=== PATIENT | male | born 1960 | race African-American/Black ===

== ENCOUNTER 2016-12-06 11:46 | Emergency (ER) | payer OTHER ==
[2016-12-06 11:59] VITALS: BP 138/75; PULSE 92; TEMP 97.9; BMI 25.4
[2016-12-06] MEDS ORDERED: ALBUTEROL SO4 2.5/IPRATROPIUM 0.5 INH SOL 3 ML VIAL.NEB. NEB ONE ×2 (12:53→12:56)
--- NOTE | 2016-12-06 13:16 | PDOC ---
History of Present Illness - General Chief Complaint: Asthma Stated Complaint: SOB, ASTHMA Time Seen by Provider: 12/06/16 12:49 - History of Present Illness Initial Comments: 12/06/16 13:10 CHIEF COMPLAINT: shortness of breath HISTORY OF PRESENT ILLNESS: 56 yo M with hx of asthma, LVH, BPH presents to fast track with SOB x 3 days. Patient states he has had a productive cough with "green phlegm" for the last 3 days. He is not sure if he had a fever but did have chills and "headache from all the coughing." He reports using is inhaler "up to 6 times a day the last 3 days" with minimal relief. He denies any chest pain, nausea, vomiting, diarrhea. No recent travel or sick contacts. PAST MEDICAL HISTORY: Denies past medical history FAMILY HISTORY: Denies SOCIAL HISTORY: Former smoker "quit decades ago." Denies alcohol, illicit drug use. SURGICAL HISTORY: rotator cuff (2009), back (2005), knee ("decades ago") ALLERGIES: No known drug allergies REVIEW OF SYSTEMS General/Constitutional: Denies fever or chills. Denies weakness, weight change. HEENT: Denies change in vision. Denies ear pain or discharge. Denies sore throat. Cardiovascular: Denies chest pain or shortness of breath. Respiratory: Persistent productive cough. Denies wheezing, or hemoptysis. Gastrointestinal: Denies nausea, vomiting, diarrhea or constipation. Denies rectal bleeding. Genitourinary: Denies dysuria, frequency, or change in urination. Musculoskeletal: Denies joint or muscle swelling or pain. Denies neck or back pain. Skin and breasts: Denies rash or easy bruising. Neurologic: Headache. Denies vertigo, loss of consciousness, or loss of sensation. PHYSICAL EXAM General Appearance: Well-appearing, appropriately dressed. No apparent distress. HEENT: Rhinorrhea. EOMI, PERRLA, normal ENT inspection, normal voice, TMs normal, pharynx normal. No conjunctival pallor. No photophobia, scleral icterus. Respiratory/Chest: Lungs CTAB. No shortness of breath, chest tenderness, respiratory distress, accessory muscle use. No crackles, rales, rhonchi, stridor , wheezing, dullness Cardiovascular: RRR. S1, S2. Gastrointestinal/Abdominal: Normal bowel sounds. Abdomen soft, non-distended. Musculoskeletal/Extremities: Normal inspection. FROM of all extremities, normal capillary refill. Pelvis Stable. No CVA tenderness. No tenderness to extremities, pedal edema, swelling, erythema or deformity. Integumentary: Appropriate color, dry, warm. 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 Fully oriented, alert. Appropriate mood/affect. No appreciable EOM palsy, facial droop or sensory deficit. Past History - Past Medical History Allergies/Adverse Reactions: Allergies Allergy/AdvReac Type Severity Reaction Status Date / Time No Known Allergies Allergy Verified 12/06/16 11:54 Home Medications: Ambulatory Orders Albuterol Sulfate Inhaler - [Ventolin HFA Inhaler -] 1 - 2 inh PO QID PRN #1 inhaler 12/06/16 Clarithromycin 500 mg PO BID #20 tablet 12/06/16 Anemia: No Asthma: Yes Cancer: No Cardiac Disorders: No CVA: No COPD: No CHF: No Dementia: No Diabetes: No GI Disorders: No Disorders: No HTN: Yes Hypercholesterolemia: No Liver Disease: No Suicide Attempt (Hx): No Seizures: No Thyroid Disease: No - Surgical History Abdominal Surgery: No Appendectomy: No Cardiac Surgery: No Cholecystectomy: No Lung Surgery: No Neurologic Surgery: No Orthopedic Surgery: Yes (KNEE ARTHOSCOPY, FACIAL SURGERY, BACK SURGERY ROTATOR CUFF REPAIN) - Immunization History Td Vaccination: Yes - Psycho/Social/Smoking Cessation Hx Anxiety: No Suicidal Ideation: No Smoking Status: Yes Smoking History: Former smoker Have you smoked in the past 12 months: No Number of Cigarettes Smoked Daily: 0 If you are a former smoker, when did you quit?: 10 YEARS Information on smoking cessation initiated: No Hx Alcohol Use: No Drug/Substance Use Hx: No Substance Use Type: None Hx Substance Use Treatment: No Respiratory Specific PMHX - Complaint Specific PMHX Angina: No Bronchitis: Yes Pneumonia: Yes Pulmonary Embolus: No TB (Tuberculosis): No *Physical Exam - Vital Signs Last Vital Signs Temp Pulse Resp BP Pulse Ox 97.9 F 92 H 19 138/75 99 12/06/16 11:54 12/06/16 11:54 12/06/16 11:54 12/06/16 11:54 12/06/16 11:54 ED Treatment Course - Medications Given in the ED: ED Medications Discontinued Medications Generic Name Dose Route Start Last Admin Trade Name Bradq PRN Reason Stop Dose Admin Albuterol/Ipratropium 1 amp 12/06/16 12:53 12/06/16 13:04 Duoneb - NEB 12/06/16 12:54 1 amp ONCE ONE Administration Medical Decision Making - Medical Decision Making 12/06/16 13:14 56 yo male with history of asthma, LVH, BPH, presents to ED with shortness of breath 3 days with productive cough. -Duoneb -Rapid flu swab Patient states he does not want azithromycin for treatment. -Clarithryomycin 500 mg bid x 10 days. -Albuterol nebulizer Advised patient to take medications as prescribed and follow up with primary care doctor. Advised patient of signs and symptoms for return to ED. Patient verbalized understanding and agrees to plan. *DC/Admit/Observation/Transfer Diagnosis at time of Disposition: Bronchitis - Discharge Dispostion Disposition: HOME Condition at time of disposition: Stable Admit: No - Prescriptions Prescriptions: Clarithromycin 500 mg PO BID #20 tablet Albuterol Sulfate Inhaler - [Ventolin HFA Inhaler -] 1 - 2 inh PO QID PRN #1 inhaler PRN Reason: Short Of Breath/Wheezing - Referrals Referrals: Tamara Monet MD [Primary Care Provider] - - Patient Instructions Printed Discharge Instructions: DI for Acute Bronchitis Additional Instructions: Please take medications as prescribed and follow-up with your primary care doctor for further evaluation and management of your asthma. If you experience chest pain, shortness of breath unrelieved by your inhaler, persistent fever, nausea, vomiting, diarrhea, or any new or worsening symptoms, please return to the ER.
[2016-12-06] MEDS ORDERED: DEXAMETHASONE LIQUID 0.5 MG/5 ML 240 ML BULK BOTTLE PO ONE (13:36)
[2016-12-06] MEDS ORDERED: DEXAMETHASONE SOD PHOSPHATE 4 MG/1 ML VIAL ONE (13:39)
== END 2016-12-06 13:52 | disposition home or self-care (01) ==
LOC: JERFT 11:46
PROC: 3E0F7GC Introduction of Other Therapeutic Substance into Respiratory Tract, Via Natural or Artificial Opening (ICD-10-PCS; principal; 2016-12-06)
DX: J20.9 Acute bronchitis, unspecified (principal); J45.909 Unspecified asthma, uncomplicated; I50.1 Left ventricular failure, unspecified; N40.0 Benign prostatic hyperplasia without lower urinary tract symptoms
CPT/HCPCS: 87804; 94640; 99281-25

== ENCOUNTER 2017-12-13 07:13 | Emergency (ER) | payer OTHER ==
[2017-12-13 07:58] VITALS: TEMP 98.4; BMI 24.4
--- NOTE | 2017-12-13 08:21 | PDOC ---
History of Present Illness - General History Source: Patient Exam Limitations: No Limitations - History of Present Illness Initial Comments: 12/13/17 08:47 The patient is a 57 year old male, with a significant past medical history of asthma and hypertension, who presents to the emergency department with a sore throat and cough for approximately 2 days. The patient reports his symptoms initially began with a sore throat and progressed into a cough productive of white sputum. Patient reports typically when he develops a cough it triggers his asthma. Patient reports he typically takes Albuterol for his symptoms, but he is running out. He denies any associated body aches, fever, chills, headache , or dizziness. He denies any chest pain, shortness of breath, diaphoresis, or palpitations. He denies any nausea or vomiting. He denies any recent travel or sick contacts. Patient reports he did not have his flu shot this year. Patient denies any history of intubations for his asthma. Allergies: NKDA Past Surgical History: Knee arthroscopy, Back surgery. Rotator cuff repair. Social History: Former smoker. No ETOH or recreational drug use. Allergies: Dr. Tamara Demarco <Kevin Charles - Last Filed: 12/13/17 08:47> <Eddi Trent - Last Filed: 12/13/17 09:37> - General Chief Complaint: Respiratory Stated Complaint: DIFFICULTY BREATHING,COUGH Time Seen by Provider: 12/13/17 08:20 Past History <Kevin Charles - Last Filed: 12/13/17 08:47> - Past Medical History Anemia: No Asthma: Yes Cancer: No Cardiac Disorders: No CVA: No COPD: No CHF: No Dementia: No Diabetes: No GI Disorders: No Disorders: No HTN: Yes Hypercholesterolemia: No Liver Disease: No Seizures: No Thyroid Disease: No - Surgical History Abdominal Surgery: No Appendectomy: No Cardiac Surgery: No Cholecystectomy: No Lung Surgery: No Neurologic Surgery: No Orthopedic Surgery: Yes (KNEE ARTHOSCOPY, FACIAL SURGERY, BACK SURGERY ROTATOR CUFF REPAIN) - Immunization History Td Vaccination: Yes - Suicide/Smoking/Psychosocial Hx Smoking Status: Yes Smoking History: Former smoker Have you smoked in the past 12 months: No Number of Cigarettes Smoked Daily: 0 If you are a former smoker, when did you quit?: 1980s Information on smoking cessation initiated: No Hx Alcohol Use: No Drug/Substance Use Hx: No Substance Use Type: None Hx Substance Use Treatment: No <Eddi Trent - Last Filed: 12/13/17 09:37> - Past Medical History Allergies/Adverse Reactions: Allergies Allergy/AdvReac Type Severity Reaction Status Date / Time No Known Allergies Allergy Verified 12/13/17 08:19 Home Medications: Ambulatory Orders Albuterol 0.083% Nebulizer Lisette [Ventolin 0.083% Nebulizer Soln -] 1 neb NEB Q4H PRN #1 vial 09/01/17 Albuterol Sulfate Inhaler - [Ventolin HFA Inhaler -] 2 inh PO QID PRN #1 inhaler 09/01/17 Azithromycin [Zithromax 250mg Tablets -] 250 mg PO UTDICT #6 tab 09/01/17 Albuterol Sulfate Inhaler - [Ventolin HFA Inhaler -] 1 - 2 inh PO QID #1 inhaler 12/13/17 Doxycycline Monohydrate [Monodox] 100 mg PO Q12H #20 capsule 12/13/17 predniSONE [Deltasone -] 40 mg PO DAILY #8 tablet 12/13/17 Respiratory Specific PMHX - Complaint Specific PMHX Angina: No Bronchitis: Yes Pneumonia: Yes Pulmonary Embolus: No TB (Tuberculosis): No <Eddi Trent - Last Filed: 12/13/17 09:37> Review of Systems - Review of Systems Able to Perform ROS?: Yes Comments:: 12/13/17 08:48 CONSTITUTIONAL: No fever, no chills, no fatigue EYES: No visual changes ENT: +Sore throat. No ear pain. CARDIOVASCULAR: No chest pain, no palpitations RESPIRATORY: +Cough. No SOB GI: No abdominal pain, no nausea, no vomiting, no constipation, no diarrhea GENITOURINARY: No dysuria, no frequency, no hematuria MUSCULOSKELETAL: No back pain, no joint pain, no myalgias SKIN: No rash NEURO: No headache <Kevin Charles - Last Filed: 12/13/17 08:47> *Physical Exam - Vital Signs Last Vital Signs Temp Pulse Resp BP Pulse Ox 98.4 F 98 H 20 144/72 96 12/13/17 07:53 12/13/17 07:53 12/13/17 07:53 12/13/17 07:53 12/13/17 07:53 - Physical Exam Comments: 12/13/17 08:48 CONSTITUTIONAL: Well-appearing; well-nourished; in no apparent distress HEAD: Normocephalic; atraumatic EYES: PERRL; EOM intact ENMT: External appears normal; normal oropharynx NECK: Supple; non-tender; no cervical lymphadenopathy. CARD: Normal S1, S2; no murmurs, rubs, or gallops RESP: Normal chest excursion with respiration;+intermittent mild ronchi at the bases bilaterally; no wheezes, or rales ABD: Soft, non-distended; non-tender; no palpable organomegaly, no palpable hernias EXT: Normal ROM in all four extremities; non-tender to palpation; distal pulses intact SKIN: Warm, dry, no rash NEURO: No focal neurological deficiencies. <Kevin Charles - Last Filed: 12/13/17 08:47> - Vital Signs Last Vital Signs Temp Pulse Resp BP Pulse Ox 98.4 F 98 H 20 144/72 96 12/13/17 07:53 12/13/17 07:53 12/13/17 07:53 12/13/17 07:53 12/13/17 07:53 <Eddi Trent - Last Filed: 12/13/17 09:37> Medical Decision Making - Medical Decision Making 12/13/17 09:31 Patient is a 57-year-old male with history of vascular (no history of intubations) who presents to the ER with 48 hours of intermittent sore throat, and cough productive of white sputum. Patient denies headache/fever/chills/ myalgias/nausea/vomiting/diarrhea. Patient endorses that last time he required steroid therapy was more than 12 months previously. In the ER, patient is awake and alert, well-appearing, afebrile, with oxygen saturation of 98% room air. Physical exam reveals intermittent rhonchi at the bases bilaterally without rails or wheezing. We'll administer prednisone. We'll discharge with prednisone and doxycycline as well as albuterol MDI for symptomatic relief. We'll discharge with PMD follow-up. <Eddi Trent - Last Filed: 12/13/17 09:37> *DC/Admit/Observation/Transfer - Attestations Scribe Attestion: 12/13/17 08:49 Documentation prepared by Kevin Charles, acting as medical policy specialist for Eddi Trent MD. <Kevin Charles - Last Filed: 12/13/17 08:47> - Attestations Physician Attestion: 12/13/17 09:31 The documentation was prepared by the scribe under my direct supervision. I have reviewed the documentation which correctly represents the findings, medical decision-making and critical action taken by me. <Eddi Trent - Last Filed: 12/13/17 09:37> Diagnosis at time of Disposition: Cough Acute asthma exacerbation Qualifiers: Asthma severity: mild Asthma persistence: intermittent Qualified Code(s): J45.21 - Mild intermittent asthma with (acute) exacerbation - Discharge Dispostion Disposition: HOME Condition at time of disposition: Stable - Referrals Referrals: Tamara Monet MD [Primary Care Provider] - - Patient Instructions Printed Discharge Instructions: DI for Acute Bronchitis, DI for Asthma -- Adult - Post Discharge Activity
[2017-12-13] MEDS ORDERED: predniSONE 20 MG TABLET (UD) PO ONE (08:43)
[2017-12-13 10:31] VITALS: BP 110/76; PULSE 80
== END 2017-12-13 10:00 | disposition home or self-care (01) ==
LOC: JERFT 07:13 → JER 07:13 → JERFT 10:00
DX: J45.21 Mild intermittent asthma with (acute) exacerbation (principal); I10 Essential (primary) hypertension
CPT/HCPCS: 99282-25

== ENCOUNTER 2018-05-07 07:11 | Emergency (ER) | payer OTHER ==
[2018-05-07 07:44] VITALS: TEMP 97.8; BMI 24.1
--- NOTE | 2018-05-07 07:49 | PDOC ---
History of Present Illness - General Chief Complaint: Shortness of Breath Stated Complaint: DIFFICULTY BREATHING History Source: Patient Exam Limitations: No Limitations - History of Present Illness Initial Comments: The patient is a 57M with a history of asthma who presents with three days of worsening shortness of breath and associated cough with white sputum. He endorses associated chest tightness which he states is similar to previous asthma exacerbations in the past. He reports that he has had episodes like this before and was previously successfully treated with duonebs, steroids, and antibiotics. He endorses sick [place] train. He denies fevers , N/V, diarrhea, abdominal pain, or chest pain. 05/07/18 08:11 Severity: moderate Associated Symptoms: reports: cough. denies: chest pain, fever/chills, headaches, nausea/vomiting Past History - Past Medical History Allergies/Adverse Reactions: Allergies Allergy/AdvReac Type Severity Reaction Status Date / Time No Known Allergies Allergy Verified 05/07/18 07:40 Home Medications: Ambulatory Orders Albuterol 0.083% Nebulizer Lisette [Ventolin 0.083% Nebulizer Soln -] 1 neb NEB Q4H PRN #1 vial 09/01/17 Albuterol Sulfate Inhaler - [Ventolin HFA Inhaler -] 2 inh PO QID PRN #1 inhaler 09/01/17 Albuterol Sulfate Inhaler - [Ventolin HFA Inhaler -] 1 - 2 inh PO QID #1 inhaler 12/13/17 predniSONE [Deltasone -] 40 mg PO DAILY #8 tablet 12/13/17 Albuterol 0.083% Nebulizer Lisette [Ventolin 0.083% Nebulizer Soln -] 1 neb NEB QID PRN #1 vial 05/07/18 Doxycycline Hyclate 100 mg PO BID 5 Days #10 capsule 05/07/18 Prednisone [Prednisone 50 MG TABLETS] 50 mg PO DAILY 4 Days #4 tablet 05/07/18 Anemia: No Asthma: Yes Cancer: No Cardiac Disorders: No CVA: No COPD: No CHF: No Dementia: No Diabetes: No GI Disorders: No Disorders: No HTN: Yes Hypercholesterolemia: No Liver Disease: No Seizures: No Thyroid Disease: No - Surgical History Abdominal Surgery: No Appendectomy: No Cardiac Surgery: No Cholecystectomy: No Lung Surgery: No Neurologic Surgery: No Orthopedic Surgery: Yes (KNEE ARTHOSCOPY, FACIAL SURGERY, BACK SURGERY ROTATOR CUFF REPAIN) - Immunization History Td Vaccination: Yes - Suicide/Smoking/Psychosocial Hx Smoking Status: Yes Smoking History: Former smoker Have you smoked in the past 12 months: No Number of Cigarettes Smoked Daily: 0 If you are a former smoker, when did you quit?: 1980s Information on smoking cessation initiated: No Hx Alcohol Use: No Drug/Substance Use Hx: No Substance Use Type: None Hx Substance Use Treatment: No Review of Systems - Review of Systems Constitutional: No: Chills, Fever HEENTM: No: Blurred Vision, Throat Pain, Throat Swelling Respiratory: Yes: See HPI Cardiac (ROS): No: Chest Pain, Palpitations, Syncope ABD/GI: No: Abdominal Distended, Diarrhea, Nausea, Rectal Bleeding, Vomiting : No: Dysuria, Hematuria Musculoskeletal: No: Joint Pain, Joint Swelling, Muscle Pain, Muscle Weakness Integumentary: No: Pruritus, Rash Neurological: No: Headache, Numbness, Dizziness Psychiatric: No: Anxiety, Depression Endocrine: No: Intolerance to Cold, Intolerance to Heat Hematologic/Lymphatic: No: Blood Clots, Easy Bleeding, Easy Bruising *Physical Exam - Vital Signs Last Vital Signs Temp Pulse Resp BP Pulse Ox 97.8 F 87 19 134/66 98 05/07/18 07:40 05/07/18 07:40 05/07/18 07:40 05/07/18 07:40 05/07/18 07:40 - Physical Exam General Appearance: Yes: Nourished. No: Apparent Distress HEENT: positive: EOMI, DANETTE, Normal ENT Inspection, Normal Voice. negative: Nasal Congestion, Rhinorrhea Neck: positive: Trachea midline, Supple. negative: Lymphadenopathy (R), Lymphadenopathy (L) Respiratory/Chest: positive: Crackles, Wheezing. negative: Chest Tender Cardiovascular: positive: Regular Rhythm, Regular Rate, S1, S2. negative: Edema , Murmur Vascular Pulses: Femoral (R): 2+, Femoral (L): 2+, Carotid (R): 2+, Carotid (L) : 2+, Dorsalis-Pedis (R): 2+, Doralis-Pedis (L): 2+ Gastrointestinal/Abdominal: positive: Normal Bowel Sounds, Soft. negative: Distended, Guarding, Rebound Musculoskeletal: positive: Normal Inspection. negative: CVA Tenderness Extremity: positive: Normal Capillary Refill, Normal Range of Motion. 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 Ddx: asthma exacerbation, bronchitis, PNA, URI, PE, PNX, allergies, COPD exacerbation ED course: Patient is well appearing, with some basal wheezing without respirator distress. BMP, CBC CXR was significant for emphysematous change Dispo: Home s/p breathing treatment x3, doxycycline, and prednisone with Rx for albuterol, prednisose 50mg PO for 4 days, and 5days total of doxycycline. Patient should follow up with his primary care physician and was given ED return precautions. The patient vocalized understanding. 05/07/18 08:59 *DC/Admit/Observation/Transfer Diagnosis at time of Disposition: Asthma Qualifiers: Asthma severity: moderate Asthma persistence: unspecified Asthma complication type: with acute exacerbation Qualified Code(s): J45.901 - Unspecified asthma with (acute) exacerbation - Discharge Dispostion Disposition: HOME Condition at time of disposition: Stable Decision to Admit order: No - Prescriptions Prescriptions: Albuterol 0.083% Nebulizer Lisette [Ventolin 0.083% Nebulizer Soln -] 1 neb NEB QID PRN #1 vial PRN Reason: Asthma Doxycycline Hyclate 100 mg PO BID 5 Days #10 capsule Prednisone [Prednisone 50 MG TABLETS] 50 mg PO DAILY 4 Days #4 tablet - Referrals Referrals: Tamara Monet MD [Primary Care Provider] - - Patient Instructions Printed Discharge Instructions: DI for Asthma -- Adult, DI for Shortness of Breath - Post Discharge Activity
[2018-05-07] MEDS ORDERED: ALBUTEROL SO4 2.5/IPRATROPIUM 0.5 INH SOL 3 ML VIAL.NEB. NEB ONE ×2 (07:58→08:15)
[2018-05-07] MEDS ORDERED: predniSONE 20 MG TABLET (UD) ONE (08:01)
[2018-05-07] MEDS ORDERED: predniSONE 20 MG TABLET (UD) PO ONE (08:04)
[2018-05-07] MEDS ORDERED: DOXYCYCLINE HYCLATE 100 MG CAPSULE PO ONE ×2 (08:04→08:19)
--- NOTE | 2018-05-07 08:32 | PDOC ---
Attending Attestation - HPI HPI: 05/07/18 08:38 The patient is a 57 year old male, with a significant past medical history of asthma and hypertension, who presents to the emergency department with productive cough anf chest tightness for about 3 days. He states [place] who appeared ill recently. He reports his cough is productive of white sputum, but denies hemoptysis. He reports mild chest tightness associated with breathing, but denies chest pain. He states he feels like he needs antibiotics. The patient denies chest pain, shortness of breath, headache and dizziness. The patient denies fever, chills, nausea, vomit, diarrhea and constipation. The patient denies dysuria, frequency, urgency and hematuria. Allergies: NKDA Past Surgical History: Knee arthroscopy, Back surgery. Rotator cuff repair. Social History: Former smoker. No ETOH or recreational drug use. Allergies: Dr. Tamara Demarco - Physicial Exam PE: 05/07/18 08:38 General: Well appearing, awake and alert, NAD. HEENT: PERRL, EOMI, moist mucus membranes Neck: neck supple, FROM, no JVD Lungs: scant basilar expiratory wheezing, normal and even respirations, no respiratory distress Heart: RRR, no murmurs, 2+ peripheral pulses throughout, no peripheral edema Abdomen: soft, NTND, no peritoneal signs. Back: nontender, normal inspection and ROM MSK: no edema, BEYER x4, ROM intact. No clubbing or cyanosis. normal bulk and tone. Neuro: alert, oriented appropriately; no focal neurologic deficits. Skin: warm and well perfused, cap refill <2 sec, normal color; no rash - Medical Decision Making 05/07/18 08:39 Documentation prepared by Renuka Mixon, acting as medical biller coder for Nicolasa Sim MD, <Renuka Mixon - Last Filed: 05/07/18 08:38> - Resident Resident Name: OswaldoCurtis - Medical Decision Making 05/07/18 08:26 57 YOM with h/o former smoker, HTN, asthma p/w productive white cough and sob x 3 days. +sick contacts on subway. no f/c. no n/v/d. no other travel. no PE or DVT risk factors. DDx. COPD, asthma, viral syndrome, URI, allergies, pneumonia. doubt PE/DVT or ACS given sx. no CP or cardiac sx. Vital as documented, wnl, normal sats. Well appearing, scant wheezing, no respiratory distress. CXR_ emphysematous changes, no other pulmonary or cardiac findings. given duonebs x3, prednisone and doxycycline for infectious coverage. sx most consistent with asthma exacerbation, pneumonia vs. viral syndrome, covered with abx given prior history. on reeval, feels much improved, wheeze improved, well appearing, VS normal and SpO2 >95% on RA. patient made aware of impression and plan. discharge in stable condition, return precautions discussed. PCP followup. supportive care, avoid triggers and precipitants. instructions on taking albuterol inhaler Q4-6 hr for sx, if requiring more tx - return sooner for eval. Rx. doxycycline x 1 week and prednisone tabs x 4 day supply. 05/07/18 09:53 <Nicolasa Sim - Last Filed: 05/07/18 09:54>
[2018-05-07] MEDS: ALBUTEROL SO4 2.5/IPRATROPIUM 0.5 INH SOL 3 ML VIAL.NEB. NEB SCH (08:59)
[2018-05-07 10:03] VITALS: BP 134/80; PULSE 83
== END 2018-05-07 10:03 | disposition home or self-care (01) ==
LOC: JER 07:11
PROC: 3E0F7GC Introduction of Other Therapeutic Substance into Respiratory Tract, Via Natural or Artificial Opening (ICD-10-PCS; principal; 2018-05-07)
DX: J45.901 Unspecified asthma with (acute) exacerbation (principal)
CPT/HCPCS: 71046-TC-FY; 94640; 99281-25; J7620

== ENCOUNTER 2018-05-11 13:45 | Emergency (ER) | payer OTHER ==
[2018-05-11 13:53] VITALS: BP 108/87; PULSE 104; TEMP 98.4; BMI 24.4
[2018-05-11] MEDS ORDERED: ALBUTEROL SO4 2.5/IPRATROPIUM 0.5 INH SOL 3 ML VIAL.NEB. NEB ONE (13:54)
--- NOTE | 2018-05-11 14:20 | PDOC ---
History of Present Illness - General Chief Complaint: Asthma Stated Complaint: SOB, LOSS INHALER - History of Present Illness Initial Comments: T7-year-old male presents to the ER requesting a refill on Ventolin. 05/11/18 14:17 Past History - Past Medical History Allergies/Adverse Reactions: Allergies Allergy/AdvReac Type Severity Reaction Status Date / Time No Known Allergies Allergy Verified 05/11/18 13:46 Home Medications: Ambulatory Orders Albuterol Sulfate Inhaler - [Ventolin HFA Inhaler -] 2 inh PO QID PRN #1 inhaler 09/01/17 Doxycycline Hyclate 100 mg PO BID 5 Days #10 capsule 05/07/18 Albuterol 0.083% Nebulizer Lisette [Ventolin 0.083% Nebulizer Soln -] 1 neb NEB Q4H PRN #20 vial 05/11/18 Anemia: No Asthma: Yes Cancer: No Cardiac Disorders: No CVA: No COPD: No CHF: No Dementia: No Diabetes: No GI Disorders: No Disorders: No HTN: Yes Hypercholesterolemia: No Liver Disease: No Seizures: No Thyroid Disease: No - Surgical History Abdominal Surgery: No Appendectomy: No Cardiac Surgery: No Cholecystectomy: No Lung Surgery: No Neurologic Surgery: No Orthopedic Surgery: Yes (KNEE ARTHOSCOPY, FACIAL SURGERY, BACK SURGERY ROTATOR CUFF REPAIN) - Immunization History Td Vaccination: Yes - Suicide/Smoking/Psychosocial Hx Smoking Status: Yes Smoking History: Former smoker Have you smoked in the past 12 months: No Number of Cigarettes Smoked Daily: 0 If you are a former smoker, when did you quit?: 1980s Information on smoking cessation initiated: No Hx Alcohol Use: No Drug/Substance Use Hx: No Substance Use Type: None Hx Substance Use Treatment: No Review of Systems - Review of Systems Neurological: No: Ataxia Psychiatric: Yes: Anxiety All Other Systems: Reviewed and Negative *Physical Exam - Vital Signs Last Vital Signs Temp Pulse Resp BP Pulse Ox 98.4 F 104 H 26 H 108/87 98 05/11/18 13:46 05/11/18 13:46 05/11/18 13:46 05/11/18 13:46 05/11/18 13:46 - Physical Exam Comments: GENERAL: The patient is awake, alert, and fully oriented, in no acute distress. HEAD: Normal with no signs of trauma. EYES:sclera anicteric, conjunctiva clear. NECK: Normal range of motion, supple without lymphadenopathy, JVD, or masses. LUNGS: Breath sounds equal, clear to auscultation bilaterally. No wheezes, and no crackles. HEART: Regular EXTREMITIES: Normal range of motion, no edema. No clubbing or cyanosis. No cords, erythema, or tenderness. NEUROLOGICAL: Cranial nerves II through XII grossly intact. Normal speech, normal gait. PSYCH: He is anxious about not having his inhaler SKIN: Warm, Dry, normal turgor, no rashes or lesions noted. 05/11/18 14:17 ED Treatment Course - Medications Given in the ED: ED Medications Discontinued Medications Generic Name Dose Route Start Last Admin Trade Name Freq PRN Reason Stop Dose Admin Albuterol/Ipratropium 1 amp 05/11/18 13:54 05/11/18 13:55 Duoneb - NEB 05/11/18 13:55 1 amp NOW ONE Administration Medical Decision Making - Medical Decision Making Scripture for albuterol was refilled 05/11/18 14:18 *DC/Admit/Observation/Transfer Diagnosis at time of Disposition: Prescription refill - Discharge Dispostion Disposition: HOME Condition at time of disposition: Stable Decision to Admit order: No - Referrals Referrals: Tamara Monet MD [Primary Care Provider] - - Patient Instructions Printed Discharge Instructions: Asthma -- Adult Additional Instructions: Because of your condition it is extremely important few to follow-up with your primary care physician when he can further evaluate you and give you further treatment options - Post Discharge Activity
== END 2018-05-11 14:26 | disposition home or self-care (01) ==
LOC: JERFT 13:45
PROC: 3E0F7GC Introduction of Other Therapeutic Substance into Respiratory Tract, Via Natural or Artificial Opening (ICD-10-PCS; principal; 2018-05-11)
DX: J45.909 Unspecified asthma, uncomplicated (principal); Z76.0 Encounter for issue of repeat prescription
CPT/HCPCS: 94640; 99281-25; J7620

== ENCOUNTER 2018-05-18 06:40 | Emergency (ER) | payer OTHER ==
[2018-05-18 06:50] VITALS: BMI 25.5
--- NOTE | 2018-05-18 07:17 | PDOC ---
History of Present Illness - General Chief Complaint: Blood Pressure Problem Stated Complaint: SOB,BLOOD PRESSURE PROBLEM Time Seen by Provider: 05/18/18 07:15 - History of Present Illness Initial Comments: 05/18/18 07:16 57 yo M with h/o asthma who p/w cough, and SOB. Patient with stable cough x 2 weeks (05/07/18), now slightly productive clear sputum ( no longer greenish). Also complains of SOB at rest, and worse with movement. No associated CP, F/C, hemoptysis. Patient seen in [facility] ED for SOB ( 05/07/18, and 05/11/18), Albuterol , Prednisone, and Doxycyline were sent to pharmacy. CXR wnl at that time. Patient states that his at home "breathing machine is broke." Patient was also prompted to come to ED because he ran out of amlodipine 10 mg x 5 days ago. Has not attempted antitussive medication. Patient denies N/V, F,C, CP, SOB, urinary complaints, abdominal pain, diarrhea, constipation, lightheadedness, weakness, sensory changes. PMHx: as noted above. Denies h/o ACS/GA, stents, CABG, abnml stress testing, or PE/DVT. ROS: as noted SHx: Tobacco cessation x 20 years ago. Denies Etoh, IVDA. Allergies: NKDA No PMD Past History - Past Medical History Allergies/Adverse Reactions: Allergies Allergy/AdvReac Type Severity Reaction Status Date / Time No Known Allergies Allergy Verified 05/18/18 06:48 Home Medications: Ambulatory Orders Albuterol Sulfate Inhaler - [Ventolin HFA Inhaler -] 2 inh PO QID PRN #1 inhaler 09/01/17 Albuterol 0.083% Nebulizer Lisette [Ventolin 0.083% Nebulizer Soln -] 1 neb NEB Q4H PRN #20 vial 05/11/18 Amlodipine Besylate 10 mg PO DAILY #7 tablet MDD 1 tab 05/18/18 Amlodipine Besylate [Norvasc -] 10 mg PO DAILY 05/18/18 Benzonatate [Tessalon Pearls -] 100 mg PO TID PRN #21 capsule MDD 3 tab Prednisone [Prednisone 50 MG TABLETS] See Taper PO DAILY #5 tablet 05/18/18 Anemia: No Asthma: Yes Cancer: No Cardiac Disorders: No CVA: No COPD: No CHF: No Dementia: No Diabetes: No GI Disorders: No Disorders: No HTN: Yes Hypercholesterolemia: No Liver Disease: No Seizures: No Thyroid Disease: No - Surgical History Abdominal Surgery: No Appendectomy: No Cardiac Surgery: No Cholecystectomy: No Lung Surgery: No Neurologic Surgery: No Orthopedic Surgery: Yes (KNEE ARTHOSCOPY, FACIAL SURGERY, BACK SURGERY ROTATOR CUFF REPAIN) - Immunization History Td Vaccination: Yes - Suicide/Smoking/Psychosocial Hx Smoking Status: Yes Smoking History: Never smoked Have you smoked in the past 12 months: No Number of Cigarettes Smoked Daily: 0 If you are a former smoker, when did you quit?: 1980s Information on smoking cessation initiated: No Hx Alcohol Use: No Drug/Substance Use Hx: No Substance Use Type: None Hx Substance Use Treatment: No Review of Systems - Review of Systems Comments:: 05/18/18 07:16 GENERAL/CONSTITUTIONAL: No fever or chills. No weakness. HEAD, EYES, EARS, NOSE AND THROAT: No change in vision. No ear pain or discharge. No sore throat. CARDIOVASCULAR: No chest pain. RESPIRATORY: +Cough, SOB. No wheezing, or hemoptysis. GASTROINTESTINAL: No nausea, vomiting, diarrhea or constipation. GENITOURINARY: No dysuria, frequency, or change in urination. MUSCULOSKELETAL: No joint or muscle swelling or pain. No neck or back pain. SKIN: No rash NEUROLOGIC: No headache, tinnitus, vertigo, loss of consciousness, or change in strength/sensation. ENDOCRINE: No increased thirst. No abnormal weight change HEMATOLOGIC/LYMPHATIC: No anemia, easy bleeding, or history of blood clots. ALLERGIC/IMMUNOLOGIC: No hives or skin allergy. = *Physical Exam - Vital Signs Last Vital Signs Temp Pulse Resp BP Pulse Ox 97.6 F 90 22 123/84 97 05/18/18 06:48 05/18/18 06:48 05/18/18 06:48 05/18/18 06:48 05/18/18 06:48 - Physical Exam Comments: 05/18/18 07:16 GENERAL: Awake, alert, and fully oriented, in no acute distress HEAD: No signs of trauma, normocephalic, atraumatic EYES: PERRLA, EOMI, sclera anicteric, conjunctiva clear ENT: Hearing grossly normal, nares patent, oropharynx clear without exudates. Moist mucosa NECK: Normal ROM, supple, no lymphadenopathy, JVD, or masses LUNGS: No distress, speaks full sentences, clear to auscultation bilaterally HEART: Regular rate and rhythm, normal S1 and S2, no murmurs, rubs or gallops, peripheral pulses normal and equal bilaterally. EXTREMITIES : Normal inspection, Normal range of motion, no edema. No clubbing or cyanosis. SKIN: Warm, Dry, normal turgor, no rashes or lesions noted ED Treatment Course - LABORATORY CBC & Chemistry Diagram: 05/18/18 07:54 05/18/18 07:54 Medical Decision Making - Medical Decision Making 05/18/18 07:37 57 yo M with h/o asthma who p/w cough, and SOB. VSS, AF. R/o PNA. Possible asthma vs. COPD exacerbation. Low risk PE based on Wells Criteria. ED Course: Prednsione, Duoneb, Guanifesin CXR 05/18/18 08:40 CXR: Unremarkable CBC: Unremarkable 05/18/18 08:48 Scheduled apt. at pt. [facility] ([address] [place] [address] ) Monday (05/21/18) at 2:00PM. 05/18/18 10:11 Trop: Neg Patient stable for d/c with return precautions. *DC/Admit/Observation/Transfer Diagnosis at time of Disposition: High blood pressure Qualifiers: Hypertension type: unspecified Qualified Code(s): I10 - Essential (primary) hypertension - Prescriptions Prescriptions: Amlodipine Besylate 10 mg PO DAILY #7 tablet MDD 1 tab Benzonatate [Tessalon Pearls -] 100 mg PO TID PRN #21 capsule MDD 3 tab PRN Reason: Cough Prednisone [Prednisone 50 MG TABLETS] See Taper PO DAILY #5 tablet - Referrals Referrals: Brendan Rico MD [Staff Physician] - Yrn Starks MD [Staff Physician] - - Patient Instructions Printed Discharge Instructions: DI for Cough -- Adult, DI for High Blood Pressure Additional Instructions: Please return to the emergency department with any new or worsening symptoms or concerns. Please follow up with your primary care physician within 72 hours. Please take Amlodipine, and Prednisone taper as prescribed. Please go to resident [facility] clinic at [facility] ([address] [place] [address] 1st floor ) Monday (05/21/18) at 2:00PM ( arrive 15 minutes early). - Post Discharge Activity - Attestations Physician Attestion: 05/18/18 07:17 I attest to the information provided in this note.
[2018-05-18] MEDS ORDERED: predniSONE 20 MG TABLET (UD) PO ONE (07:33)
[2018-05-18] MEDS ORDERED: ALBUTEROL SO4 2.5/IPRATROPIUM 0.5 INH SOL 3 ML VIAL.NEB. NEB ONE ×2 (07:33→07:43)
[2018-05-18] MEDS ORDERED: guaiFENesin 200 MG/10 ML 10 ML UNIT-DOSE CUPS PO ONE (07:39)
[2018-05-18] MEDS ORDERED: AZITHROMYCIN 500 MG TABLET PO ONE (07:43)
[2018-05-18] MEDS ORDERED: predniSONE 20 MG TABLET (UD) ONE (07:43)
[2018-05-18 08:07] LABS: EOS % 2.2 % (0-4.5); HEMATOCRIT 36.9 % (35.4-49); HEMOGLOBIN 11.9 GM/dL (11.7-16.9); LYMPH % 22.4 % (8-40); MCH 28.6 pg (25.7-33.7); MCHC 32.3 g/dl (32.0-35.9); MEAN CELL VOLUME 88.5 fl (80-96); MEAN PLT VOLUME 8.2 fl (7.5-11.1); MONO % 15.6 % (3.8-10.2); NEUT % 58.8 % (42.8-82.8); PLATELET COUNT 163 K/MM3 (134-434); RBC 4.17 M/mm3 (4.00-5.60); RDW 15.2 % (11.9-15.9); WHITE BLOOD COUNT 3.3 K/mm3 (4.0-10.0)
[2018-05-18] MEDS ORDERED: AZITHROMYCIN 500 MG TABLET ONE (08:11)
[2018-05-18] MEDS ORDERED: guaiFENesin 200 MG/10 ML 10 ML UNIT-DOSE CUPS ONE (08:11)
[2018-05-18 08:47] LABS: ALBUMIN 3.4 g/dl (3.4-5.0); ALK PHOS 51 U/L (45-117); ANION GAP 4 (8-16); BILIRUBIN,TOTAL 0.7 mg/dL (0.2-1.0); BLOOD UREA NITROGEN 13 mg/dL (7-18); CALCIUM 8.6 mg/dL (8.5-10.1); CHLORIDE 106 mmol/L (98-107); CO2 29 mmol/L (21-32); GLUCOSE,RANDOM 71 mg/dL (74-106); POTASSIUM 3.6 mmol/L (3.5-5.1); SGOT/AST 32 U/L (15-37); SGPT/ALT 42 U/L (12-78); SODIUM 139 mmol/L (136-145); TOT PROT 6.2 g/dl (6.4-8.2)
[2018-05-18 10:25] VITALS: BP 135/101; PULSE 20; TEMP 97.9
--- NOTE | 2018-05-18 11:05 | PDOC ---
Attending Attestation - HPI HPI: 05/18/18 12:00 The patient is a 57 year old male, with a significant past medical history of asthma and hypertension, who presents to the emergency department with two weeks of cough and shortness of breath. He states the cough is persistent and productive, however, less productive today. He states he feels slightly short of breath. He states he used albuterol treatments and inhaler which did not offer significant relief. He reports just completing a 5 day course of prednisone. He also states he does not have any more hypertension medications at home. The patient denies chest pain, headache and dizziness. The patient denies fever , chills, nausea, vomit, diarrhea and constipation. The patient denies dysuria, frequency, urgency and hematuria. Allergies: NKDA - Physicial Exam PE: 05/18/18 12:00 ROS: A complete review of 10 out of 10 review of systems is taken and is negative apart from what is previously mentioned below and in the HPI. Vitals: Triage vital signs reviewed General Appearance: No acute distress, well nourished, well developed Head: Atraumatic Eyes: Pupils equal reactive round, extraocular movement intact Neck: Supple; No nuchal rigidity Chest Wall: Nontender Cardiac: Regular rate and rhythm, no murmurs, no rubs, no gallops Lungs: + mild bilateral end-expiratory wheezing. No crackles. Abdomen: Soft, nondistended, normal bowel sounds, nontender to palpation Genitourinary: Rectal: Exam deferred Neuro: AOX3; Cranial Nerves 2-12 grossly intact, Strength intact to all extremities, Sensation intact to all extremities, gait normal Psych: Normal mood, normal affect - Medical Decision Making 05/18/18 12:00 57 year old M with history of asthma and hypertension presents to the ED with two weeks of productive cough and shortness of breath despite use of albuterol treatment and inhaler use at home. Plan: Labs, CXR, referral to pulm and to Dr. [facility] for follow-up Documentation prepared by Renuka Mixon, acting as medical record clerk for Tyrone Ruggiero MD <Renuka Mixon - Last Filed: 05/18/18 12:00> - Resident Resident Name: Fei Piedra - ED Attending Attestation I have performed the following: I have examined & evaluated the patient, The case was reviewed & discussed with the resident, I agree w/resident's findings & plan, Exceptions are as noted - Medical Decision Making Well-appearing no apparent advised treatments and steroids patient feels much better. No indication for antibiotics at this time no fever no white count no active cardiopulmonary disease on chest x-ray We'll discharge home with short steroid taper we have arranged patient follow- up in her clinic on Monday. Findings, the need for follow-up and strict return instructions discussed with patient. <Tyrone Ruggiero - Last Filed: 05/18/18 15:15>
== END 2018-05-18 10:36 | disposition home or self-care (01) ==
LOC: JER 06:40
PROC: 3E0F7GC Introduction of Other Therapeutic Substance into Respiratory Tract, Via Natural or Artificial Opening (ICD-10-PCS; principal; 2018-05-18)
DX: J45.909 Unspecified asthma, uncomplicated (principal); I10 Essential (primary) hypertension
CPT/HCPCS: 36415; 71045-TC-FY; 80053; 82550; 82553; 84484; 85025; 94640; 99282-25; J7620

== ENCOUNTER 2018-12-04 14:26 | Emergency (ER) | payer OTHER ==
--- NOTE | 2018-12-04 14:44 | PDOC ---
Rapid Medical Evaluation Time Seen by Provider: 12/04/18 14:41 Medical Evaluation: Allergies Allergy/AdvReac Type Severity Reaction Status Date / Time No Known Allergies Allergy Verified 05/18/18 06:48 12/04/18 14:41 Pt presents to the ED for shortness of breath/asthma exacerbation. Tried using his albuterol pump last night with little relief of his symptoms. Exam: Tight lung sounds to the bases. No wheezing appreciated. O2 saturation Orders: Ryan Pt to proceed to the ED Discharge Disposition - Diagnosis Asthma - Referrals - Patient Instructions - Post Discharge Activity
[2018-12-04 14:45] VITALS: BP 121/72; PULSE 89; TEMP 98.3; BMI 24.8
[2018-12-04] MEDS ORDERED: DEXAMETHASONE SOD PHOSPHATE 10 MG/1 ML VIAL IM ONE (14:47)
[2018-12-04] MEDS: ALBUTEROL SO4 2.5/IPRATROPIUM 0.5 INH SOL 3 ML VIAL.NEB. NEB SCH ×4 (14:50→15:51)
[2018-12-04] MEDS ORDERED: ALBUTEROL SO4 2.5/IPRATROPIUM 0.5 INH SOL 3 ML VIAL.NEB. NEB ONE (15:26)
--- NOTE | 2018-12-04 15:49 | PDOC ---
History of Present Illness - General Chief Complaint: Cold Symptoms Stated Complaint: ASTHMA Time Seen by Provider: 12/04/18 14:41 - History of Present Illness Initial Comments: 12/04/18 15:48 58-year-old male with a past medical history history significant for asthma and hypertension presents for an asthma exacerbation which has been unrelieved by his home inhaler over the last week. Past History - Past Medical History Allergies/Adverse Reactions: Allergies Allergy/AdvReac Type Severity Reaction Status Date / Time No Known Allergies Allergy Verified 12/04/18 14:42 Home Medications: Ambulatory Orders Albuterol 0.083% Nebulizer Lisette [Ventolin 0.083% Nebulizer Soln -] 1 neb NEB Q4H PRN #20 vial 12/04/18 Albuterol Sulfate Inhaler - [Ventolin HFA Inhaler -] 1 - 2 inh PO Q4H #1 inhaler 12/04/18 Losartan Potassium 25 mg PO ASDIR 12/04/18 Anemia: No Asthma: Yes Cancer: No Cardiac Disorders: No CVA: No COPD: No CHF: No Dementia: No Diabetes: No GI Disorders: No Disorders: No HTN: Yes Hypercholesterolemia: No Liver Disease: No Seizures: No Thyroid Disease: No - Surgical History Abdominal Surgery: No Appendectomy: No Cardiac Surgery: No Cholecystectomy: No Lung Surgery: No Neurologic Surgery: No Orthopedic Surgery: Yes (KNEE ARTHOSCOPY, FACIAL SURGERY, BACK SURGERY ROTATOR CUFF REPAIN) - Immunization History Td Vaccination: Yes - Suicide/Smoking/Psychosocial Hx Smoking Status: Yes Smoking History: Never smoked Have you smoked in the past 12 months: No Number of Cigarettes Smoked Daily: 0 If you are a former smoker, when did you quit?: 1980s Hx Alcohol Use: No Drug/Substance Use Hx: No Substance Use Type: None Hx Substance Use Treatment: No Review of Systems - Review of Systems Respiratory: Yes: Cough, Wheezing *Physical Exam - Vital Signs Last Vital Signs Temp Pulse Resp BP Pulse Ox 98.3 F 89 18 121/72 98 12/04/18 14:43 12/04/18 14:43 12/04/18 14:43 12/04/18 14:43 12/04/18 14:43 - Physical Exam Comments: 12/04/18 15:48 HEAD: NC/AT NOSE: No d/c NECK: Supple without adenopathy CARDIAC: S1 S2 LUNGS: Decreased breath sounds mild wheezing at the right base ABDOMEN: Soft NT ND MS: Full ROM in all joints without edema NEUROLOGIC: No gross sensory or motor deficits, NVID SKIN: Normal color and temperature no lesions or rashes Moderate Sedation - Procedure Monitoring Vital Signs: Procedure Monitoring Vital Signs Temperature 98.3 F 12/04/18 14:43 Pulse Rate 89 12/04/18 14:43 Respiratory Rate 18 12/04/18 14:43 Blood Pressure 121/72 12/04/18 14:43 O2 Sat by Pulse Oximetry (%) 98 12/04/18 14:43 ED Treatment Course - Medications Given in the ED: ED Medications Discontinued Medications Generic Name Dose Route Start Last Admin Trade Name Freq PRN Reason Stop Dose Admin Albuterol/Ipratropium 1 amp 12/04/18 14:45 12/04/18 15:29 Duoneb - NEB 12/04/18 15:31 1 amp Q15M ALVA Administration Medical Decision Making - Medical Decision Making 12/04/18 16:36 clear after 4th duo nebs and decadron *DC/Admit/Observation/Transfer Diagnosis at time of Disposition: Asthma Diagnosis at time of Disposition: (Ruled Out): URI (upper respiratory infection) - Discharge Dispostion Disposition: HOME Condition at time of disposition: Improved Decision to Admit order: No - Referrals Referrals: Cory Juarez MD [Staff Physician] - - Patient Instructions Printed Discharge Instructions: Asthma -- Adult, DI for Asthma -- Adult Additional Instructions: Return to the emergency room should symptoms worsen or go unresolved. Please follow-up with pulmonology in one to 2 days for further evaluation and treatment options. Inhaler every 4-6 hours only as needed for coughing and wheezing. - Post Discharge Activity
[2018-12-04] MEDS ORDERED: DEXAMETHASONE SOD PHOSPHATE 10 MG/1 ML VIAL ONE (16:19)
== END 2018-12-04 16:43 | disposition home or self-care (01) ==
LOC: JERFT 14:26
PROC: 3E0F7GC Introduction of Other Therapeutic Substance into Respiratory Tract, Via Natural or Artificial Opening (ICD-10-PCS; principal; 2018-12-04)
DX: J45.901 Unspecified asthma with (acute) exacerbation (principal); I10 Essential (primary) hypertension
CPT/HCPCS: 94640; 99281-25

== ENCOUNTER 2018-12-18 11:39 | Emergency (ER) | payer OTHER ==
[2018-12-18 12:26] VITALS: BP 144/95; PULSE 84; TEMP 98; BMI 24.7
[2018-12-18] MEDS ORDERED: predniSONE 20 MG TABLET (UD) PO ONE (12:50)
--- NOTE | 2018-12-18 12:50 | PDOC ---
History of Present Illness - General Chief Complaint: Respiratory Stated Complaint: DIFFICULTY BREATHING Time Seen by Provider: 12/18/18 12:29 History Source: Patient - History of Present Illness Timing/Duration: reports: other Associated Symptoms: denies: cough, fever/chills Past History - Past Medical History Allergies/Adverse Reactions: Allergies Allergy/AdvReac Type Severity Reaction Status Date / Time No Known Allergies Allergy Verified 12/18/18 12:23 Home Medications: Ambulatory Orders Albuterol 0.083% Nebulizer Lisette [Ventolin 0.083% Nebulizer Soln -] 1 neb NEB Q4H PRN #20 vial 12/04/18 Albuterol Sulfate Inhaler - [Ventolin HFA Inhaler -] 1 - 2 inh PO Q4H #1 inhaler 12/04/18 Losartan Potassium 25 mg PO ASDIR 12/04/18 Prednisone [Deltasone] 40 mg PO DAILY #8 tablet 12/18/18 Anemia: No Asthma: Yes Cancer: No Cardiac Disorders: No CVA: No COPD: No CHF: No Dementia: No Diabetes: No GI Disorders: No Disorders: No HTN: Yes Hypercholesterolemia: No Liver Disease: No Seizures: No Thyroid Disease: No - Surgical History Abdominal Surgery: No Appendectomy: No Cardiac Surgery: No Cholecystectomy: No Lung Surgery: No Neurologic Surgery: No Orthopedic Surgery: Yes (KNEE ARTHOSCOPY, FACIAL SURGERY, BACK SURGERY ROTATOR CUFF REPAIN) - Immunization History Td Vaccination: Yes - Suicide/Smoking/Psychosocial Hx Smoking Status: Yes Smoking History: Unknown if ever smoked Have you smoked in the past 12 months: No Number of Cigarettes Smoked Daily: 0 If you are a former smoker, when did you quit?: 1980s Hx Alcohol Use: No Drug/Substance Use Hx: No Substance Use Type: None Hx Substance Use Treatment: No Respiratory Specific PMHX - Complaint Specific PMHX Angina: No Bronchitis: Yes Pneumonia: Yes Pulmonary Embolus: No TB (Tuberculosis): No Review of Systems - Review of Systems Constitutional: No: Fever Respiratory: Yes: Shortness of Breath, Wheezing. No: Cough Cardiac (ROS): No: Chest Pain *Physical Exam - Vital Signs Last Vital Signs Temp Pulse Resp BP Pulse Ox 98 F 84 20 144/95 97 12/18/18 11:50 12/18/18 11:50 12/18/18 11:50 12/18/18 11:50 12/18/18 11:50 - Physical Exam General Appearance: Yes: Appropriately Dressed. No: Apparent Distress HEENT: positive: Normal Voice Neck: positive: Supple Respiratory/Chest: positive: Lungs Clear, Normal Breath Sounds. negative: Respiratory Distress, Wheezing Cardiovascular: negative: Regular Rate, S1, S2 Integumentary: positive: Dry, Warm Neurologic: positive: Fully Oriented, Alert, Normal Mood/Affect Moderate Sedation - Procedure Monitoring Vital Signs: Procedure Monitoring Vital Signs Temperature 98 F 12/18/18 11:50 Pulse Rate 84 12/18/18 11:50 Respiratory Rate 20 12/18/18 11:50 Blood Pressure 144/95 12/18/18 11:50 O2 Sat by Pulse Oximetry (%) 97 12/18/18 11:50 Medical Decision Making - Medical Decision Making 12/18/18 12:49 58 yo M, h/o asthma, uses pumps and neb tx at home, no admissions or intubation , here w/ sob and wheezing c/w his asthma x 6 days, not improved w/ meds. Symptoms started after he saw the potato that was too hot. No foreign body sensation in throat and no dysphagia currently. Denies cough, f/c See exam Asthma flare Since improved s/p nebs at triage Chest/lungs clear -prednisone -anticipate dc w/ pred taper 12/18/18 12:53 12/18/18 13:43 Pt reports feeling sig better w/ treatment and remains clear on exam. Able to ambulate without SOB. Stable for dc at this time on pred taper *DC/Admit/Observation/Transfer Diagnosis at time of Disposition: Asthma Qualifiers: Asthma severity: mild Asthma persistence: intermittent Asthma complication type : uncomplicated Qualified Code(s): J45.20 - Mild intermittent asthma, uncomplicated - Discharge Dispostion Disposition: HOME Condition at time of disposition: Improved - Prescriptions Prescriptions: Prednisone [Deltasone] 40 mg PO DAILY #8 tablet - Referrals Referrals: Brendan Rico MD [Primary Care Provider] - - Patient Instructions Printed Discharge Instructions: Asthma -- Adult Additional Instructions: Take prednisone as directed and follow up with PMD as needed - Post Discharge Activity
[2018-12-18] MEDS ORDERED: ALBUTEROL SO4 2.5/IPRATROPIUM 0.5 INH SOL 3 ML VIAL.NEB. NEB ONE ×2 (12:51→13:02)
[2018-12-18] MEDS ORDERED: predniSONE 20 MG TABLET (UD) ONE (13:02)
== END 2018-12-18 13:45 | disposition home or self-care (01) ==
LOC: JER 11:39
PROC: 3E0F7GC Introduction of Other Therapeutic Substance into Respiratory Tract, Via Natural or Artificial Opening (ICD-10-PCS; principal; 2018-12-18)
DX: J45.20 Mild intermittent asthma, uncomplicated (principal); I10 Essential (primary) hypertension
CPT/HCPCS: 94640; 99281-25